=== PATIENT | female | born 1980 | race African-American/Black ===

== ENCOUNTER 2019-06-14 17:15 | Inpatient (IN) ==
[2019-06-14 17:51] LABS: URINE SOURCE CLEAN CATCH
[2019-06-14 17:53] LABS: BILIRUBIN URINE NEGATIVE (NEGATIVE); BLOOD URINE TRACE (NEGATIVE); COLOR YELLOW; GLUCOSE URINE NEGATIVE (NEGATIVE); KETONE URINE NEGATIVE (NEGATIVE); LEUKOCYTES URINE NEGATIVE (NEGATIVE); NITRITE URINE NEGATIVE (NEGATIVE); PROTEIN URINE 50 mg/dL (NEGATIVE); SP GRAVITY URINE 1.032; TURBIDITY URINE CLEAR (CLEAR); UROBILINOGEN URINE 2 mg/dL (NORMAL)
[2019-06-14 17:55] LABS: UR EPITHELIAL CELLS <10 /HPF (<10); URINE BACTERIA NEGATIVE /HPF; URINE RBC <10 /HPF (<10); URINE WBC <10 /HPF (<10)
[2019-06-14 17:57] LABS: BASO# 0.03 X1000 (0.0-0.2); BASO% 0.2 % (0.0-0.8); EOS# 0.04 X1000 (0.0-0.7); EOS% 0.3 % (0.0-10.0); HEMATOCRIT 41.4 % (37.0-47.0); HEMOGLOBIN 13.8 g/dL (12.0-16.0); IMM GRAN# 0.07 X1000 (0.0-0.04); IMM GRAN% 0.5 % (0.0-0.5); LYMPH# 2.21 X1000 (1.2-3.4); MCH 30.4 PG (27-31); MCHC 33.3 g/dL (33-37); MCV 91.2 FL (81-99); MONO# 0.94 X1000 (0.11-0.59); MONO% 6.4 % (1.7-9.3); MPV 9.4 FL (7.4-10.4); NEUT# 11.45 X1000 (1.4-6.5); NEUT% 77.6 % (42.2-75.2); PLT 413 X1000 (130-400); RBC 4.54 XMIL (4.2-5.4); RDW 15.3 % (11.5-14.5); WBC 14.74 X1000 (4.8-10.8)
[2019-06-14 18:06] LABS: AGAP 15; ALBUMIN 4.5 g/dL (3.5-5.0); ALKALINE PHOSPHATASE 100 U/L (32-104); AMYLASE 46 U/L (20-200); BUN 11 mg/dL (8-22); CALCIUM 10.2 mg/dL (8.8-10.2); CHLORIDE 100 mmol/L (98-107); COSMO 272; CREATININE 0.7 mg/dL (0.5-0.9); ESTIMATED GFR > 60; GLUCOSE 105 mg/dL (70-104); GOT 18 U/L (10-30); GPT 17 U/L (10-36); LIPASE 16 U/L (13-60); POTASSIUM 4.7 mmol/L (3.5-5.1); SODIUM 136 mmol/L (136-145); TCO2 21 mmol/L (25-35); TOTAL PROTEIN 9.3 g/dL (6.3-8.3)
--- NOTE | 2019-06-14 19:21 | Diag Imaging Result Doc PS360 ---
EXAM: CT ABD/PELVIS W/IV CONT ONLY - 06/14/2019 HISTORY: abdominal pain, leukocytosis TECHNIQUE: CT abdomen/pelvis with intravenous contrast COMPARISON: None. FINDINGS: The visualized lung bases are clear except for mild dependent atelectasis. There is hepatomegaly with mild fatty infiltration of liver. There is no evidence of focal liver lesion. The spleen is normal size. The spleen appears mildly heterogeneous but this is likely artifactual. There is a 1.2 cm left adrenal nodule which likely represents adrenal adenoma. There is no pancreatic mass or inflammation identified. The gallbladder is mildly distended, but there are no calcified gallstones or pericholecystic inflammation seen. The bilateral kidneys enhance homogeneously except for apparent 1.1 cm left renal cyst. There is no hydronephrosis. There is mild retroperitoneal adenopathy. There is no evidence of bowel obstruction. The appendix is unremarkable. There is colonic diverticulosis which is most extensive at the descending and sigmoid colon. There are inflammatory changes at the distal sigmoid colon with wall thickening and pericolic infiltration, compatible with diverticulitis. There is low-density edema or fluid in the wall of the distal sigmoid for a length of about 8 cm. This may relate to wall edema, possibly with developing intramural abscess. There is no abnormal gas collection or abscess external to the sigmoid. There is a second area of inflammation at the mid ascending colon which is compatible with a secondary diverticulitis. There is substantially less inflammation in this area and at the distal sigmoid. There is no free air identified. IMPRESSION: Diverticulitis at distal descending colon. Wall edema at distal sigmoid with possible developing intramural abscess. No evidence of abscess external to the sigmoid. Second area of diverticulitis at the mid descending colon, with less inflammation at this location than at the distal sigmoid. No free air. No bowel obstruction. Hepatomegaly with mild fatty infiltration of the liver. Probable small left adrenal adenoma. Mild retroperitoneal adenopathy. This may be inflammatory associated with the sigmoid diverticulitis. This exam was performed using automated exposure control, adjustment of mA or kV according to patient size, and/or use of iterative reconstruction technique. Electronically signed by Carl Álvarez 06/14/2019 7:18 PM
[2019-06-14] MEDS ORDERED: PHENERGAN IM ONE (19:37)
[2019-06-14] MEDS ORDERED: NS 1,000 ML IV ONE (19:37)
[2019-06-14] MEDS ORDERED: MORPHINE IV ONE (19:37)
[2019-06-14] MEDS ORDERED: FLAGYL 500 MG/NS 500 MG/100 ML IVPB IV SCH (19:45)
[2019-06-14] MEDS ORDERED: LEVAQUIN 750 MG/D5W 750 MG/150 ML IVPB IV SCH (19:45)
--- NOTE | 2019-06-14 20:06 | PROVIDER DOCUMENTATION ---
This chart was entered by Trista Zuniga Scribe, acting as scribe for Saniya Barroso PA. HPI-Abdominal Pain/GI Problem - General Chief Complaint: Abdominal Pain Stated Complaint: ABD PAIN Time Seen by Provider: 06/14/19 17:36 Source: patient Allergies/Adverse Reactions: Patient Allergies Allergy/AdvReac Type Severity Reaction Status Date / Time Penicillins Allergy RASH Verified 06/14/19 17:49 Home Medications: Home Medication List Medication Instructions Recorded Confirmed Last Taken Type Atorvastatin Calcium 10 mg PO DAILY 03/03/19 06/14/19 Unknown History Amlodipine Besylate [Norvasc] 1 tab PO DAILY 06/14/19 06/14/19 Unknown History - History of Present Illness-ABD Nature of Presenting Problems: 38 yobf c/o lower abd pain and pressure for 3 weeks. Pt has used multiple OTC meds, miralax, laxative and gas x, w/no relief. Pt has had BM's that are pellet shaped and having BM doesn't make abd pain better. Pt was seen at walkin in clinic and sts they told her she had hematuria. denies UTI's, low back pain, renal stone hx and nvd. Abdominal Pain Onset Location: reports: RLQ, LLQ, suprapubic Pain Radiation: reports: no radiation Quality of Pain: reports: pressure Severity in ED: reports: mild Onset/Duration: reports: other (3 weeks) Timing: reports: still present Activities at Onset: reports: none Modifying Factors: improves with: nothing Associated Symptoms: reports: denies symptoms Last BM: other Dark Stools Present?: reports: none noticed Rectal Bleeding: reports: none Rectal Pain: reports: none Emesis Description: reports: none Recently seen or treated by another doctor?: Yes (walk in clinic ) Review of Systems - Adult - REVIEW OF SYSTEMS - ADULT Constitutional: reports: no symptoms reported. denies: chills, fever, fatique Eyes: reports: no symptoms reported Ears, Nose, Mouth & Throat: reports: no symptoms reported Cardiovascular: reports: no symptoms reported Respiratory: reports: no symptoms reported Gastrointestinal: reports: see HPI, abdominal pain, constipation. denies: diarrhea, nausea, vomiting Genitourinary: reports: no symptoms reported Musculoskeletal: reports: no symptoms reported Integumentary: reports: no symptoms reported Neurological: reports: no symptoms reported Psychiatric: reports: no symptoms reported Endocrine: reports: no symptoms reported Hematologic/Lymphatic: reports: no symptoms reported Allergic/Immunologic: reports: no symptoms reported All Other Systems: Reviewed and Negative Past History - Adult - PAST MEDICAL HISTORY-ADULT Review of Records: reports: Nursing Assessment Review, Medications Reviewed, Social history reviewed & non-contributory. Major Childhood Illnesses: reports: denies history Cardiovascular: reports: denies history Respiratory: reports: denies history Gastrointestinal: reports: denies history Obstetrical/Gynecological: reports: denies history Genitourinary: reports: denies history Musculoskeletal: reports: denies history Neurological: reports: denies history Endocrine/Immune: reports: denies history Other Conditions: reports: denies history - PRIOR SURGERIES/PROCEDURES Surgical/Procedure History: reports: BTL, , other (I&D) - IMMUNIZATION STATUS Childhood Immunizations: See Nurse Assessment Flu Vaccine: See Nurse Assessment - FAMILY HISTORY Family History: reviewed, not pertinent - SOCIAL HISTORY Smoking: cigarettes, greater than 1 pack/day Provider spent 3-5 mins advising pt. on dangers of tobacco.: Discussed manners to quit use, and f/u contacts for add'l counseling. Substance Use: alcohol Alcohol Use Frequency: occasionally Physical Exam-General - PHYSICAL EXAM-ADULT Initial Vital Signs Reviewed: Yes - CONSTITUTIONAL General Appearance: appears well, alert, no apparent distress, obese - EYES Eyes: PERRL/EOMI, pink conjunctivae - HEAD, EARS, NOSE, MOUTH & THROAT HENMT: normocephalic/atraumatic, moist mucous membranes - NECK Neck: non-tender, full range of motion, supple. negative: lymphadenopathy - RESPIRATORY Respiratory: chest non-tender, lungs clear, normal breath sounds. negative: crackles, rales, rhonchi, stridor, wheezing - CARDIOVASCULAR Cardiovascular: regular rate, rhythm - GASTROINTESTINAL (ABDOMEN) Abdominal Exam: normal bowel sounds, soft, tenderness (suprapubic). negative: distended, guarding, rigid, rebound, hernia, mass - MUSCULOSKELETAL Back Exam: normal inspection, no CVA tenderness, no vertebral tenderness Extremity: normal gait, normal inspection - SKIN Integumentary: normal color, normal turgor, warm/dry - NEUROLOGIC Neurologic: grossly normal, no motor/sensory deficits - PSYCHIATRIC Psych/Mental Status: normal thought content, normal thought process Progress - PLAN OF CARE/RESULTS Progress/Plan/Lab Results: Vital Signs - 8 hr 06/14/19 17:27 Temperature 97.6 F Pulse Rate 122 H Respiratory Rate 19 Blood Pressure 150/91 O2 Sat by Pulse Oximetry 96 Orders Category Date Time Status NEWS Score 2-4:Order NEWS Lactate Series NOW Care 06/14/19 17:31 Active Saline Loc DIRECTED Care 06/14/19 17:32 Active NPO Diet 06/14/19 17:32 Active AMYLASE [CHEM] Stat Lab 06/14/19 17:42 Ordered CBC WITH ELECTRONIC DIFF [HEME] Stat Lab 06/14/19 17:42 Ordered COMPREHENSIVE METABOLIC PANEL [CHEM] Stat Lab 06/14/19 17:42 Ordered LACTATE, PLASMA [CHEM] Lab 06/14/19 17:42 Ordered LACTATE, PLASMA [CHEM] Lab 06/14/19 20:45 Uncollected LACTATE, PLASMA [CHEM] Lab 06/14/19 23:45 Uncollected LIPASE [CHEM] Stat Lab 06/14/19 17:42 Ordered TEST-URINE [PREG] Stat Lab 06/14/19 17:42 Ordered URINALYSIS W/POSS RFLX CULT [URINALYSIS] Stat Lab 06/14/19 17:42 Ordered Result Diagrams: 06/14/19 17:42 06/14/19 17:42 - CT/MRI 1 CT Study: Abdomen, Pelvis Impression: Abnormal, See EMR Report ( EXAM: CT ABD/PELVIS W/IV CONT ONLY - 06/14/2019 HISTORY: abdominal pain, leukocytosis TECHNIQUE: CT abdomen/pelvis with intravenous contrast COMPARISON: None. FINDINGS: The visualized lung bases are clear except for mild dependent atelectasis. There is hepatomegaly with mild fatty infiltration of liver. There is no evidence of focal liver l esion. The spleen is normal size. The spleen appears mildly heterogeneous but this is likely artifactual. There is a 1.2 cm left adrenal nodule which likely represents adrenal adenoma. There is no pancreatic mass or inflammation identified. The gallbladder is mildly distended, but there are no calcified gallstones or pericholecystic inflammation seen. The bilateral kidneys enhance homogeneously except for apparent 1.1 cm left renal cyst. There is no hydronephrosis. There is mild retroperitoneal adenopathy. There is no evidence of bowel obstruction. The appendix is unremarkable. There is colonic diverticulosis which is most extensive at the descending and sigmoid colon. There are inflammatory changes at the distal sigmoid colon with wall thickening and pericolic infiltration, compatible with diverticulitis. There is low-density edema or fluid in the wall of the distal sigmoid for a length of about 8 cm. This may relate to wall edema, possibly with developing intramural abscess. Th ere is no abnormal gas collection or abscess external to the sigmoid. There is a second area of inflammation at the mid ascending colon which is compatible with a secondary diverticulitis. There is substantially less inflammation in this area and at the distal sigmoid. There is no free air identified. IMPRESSION: Diverticulitis at distal descending colon. Wall edema at distal sigmoid with possible developing intramural abscess. No evidence of abscess external to the sigmoid. Second area of diverticulitis at the mid descending colon, with less inflammation at this location than at the distal sigmoid. No free air. No bowel obstruction. Hepatomegaly with mild fatty infiltration of the liver. Probable small left adrenal adenoma. Mild retroperitoneal adenopathy. This may be inflammatory associated with the sigmoid diverticulitis. This exam was performed using automated exposure control, adjustment of mA or kV according to patient size, and/or use of iterative reconstruction technique. Electronically signed by Carl Álvarez 06/14/2019 7:18 PM) Comparison with other Films: no prior study - CONSULTS/PCP/HOSPITALIST Notification #1 *Consult/PCP/Hospitalist*: Dr. Antunez Time Discussed: 19:34 Consult Disposition: Admit #2 Consult: Dr. Peña Time Discussed: 19:39 Consult Disposition: Will see in ED (Dr. Peña at bedside to exam in pt at 20:00), other (Dr. Peña requests pt be transferred to [facility] Departure - Departure Date of Disposition Decision: 06/14/19 Time of Disposition Decision: 19:43 DIAGNOSIS: Diverticulitis Diverticulitis of large intestine with abscess Qualifiers: Diverticulitis bleeding: without bleeding Qualified Code(s): K57.20 - Diverticulitis of large intestine with perforation and abscess without bleeding Disposition: ADMITTED INPATIENT 09 Certified Medical Emergency: Emergent Condition: Good Referrals and Follow-Ups: None,PCP [Primary Care Provider] - - Critical Care Note This patient required my direct & personal management of CC.: No Attestation - Physician/ ERICA Attestation Patient care was provided by Advanced Practice Provider:: Yes Advanced Practice Provider:: Saniya Barroso Advanced Practice Provider documentation review:: The Mid-level provider documentation, treatment plan and medical decision making was reviewed by the physician who agrees with all treatment and medical decision making by the MLP. The physician spent face to face time with patient:: Yes (Dr. Cano at bedside to discuss need for admission and possible surgical intervention) Advanced Practice Provider documentation review:: Supervising physician onsite and consulted in the evaluation and care of this patient. The physician did have a face to face encounter with the patient. This chart was documented by the indicated scribe, (Trista Zuniga Scribe) and accurately reflects the services I performed and decisions made by me, Saniya Devlin PA, as attested by the provider's signature.
--- NOTE | 2019-06-14 20:20 | GENERAL SURGERY CONSULTATION ---
DATE: 06/14/2019 REASON FOR CONSULTATION: Diverticulitis. CHIEF COMPLAINT: Abdominal pain. HISTORY OF PRESENT ILLNESS: This is a 38-year-old female who developed lower abdominal pain, she says starting 3 weeks ago. It became more severe, prompting her presentation to the emergency department. She has had some hard stools lately. No bleeding. Weight has been stable. No nausea or vomiting. She came to the ER where CT scan showed sigmoid diverticulitis with another separate focal area of the descending colon and some question of possible developing intramural abscess. No free air. MEDICAL HISTORY: Hypertension and hyperlipidemia. SURGICAL HISTORY: . SOCIAL HISTORY: She does smoke a pack a day. Drinks alcohol. 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 FAMILY HISTORY: Significant for lung cancer. REVIEW OF SYSTEMS: A 10-point review of systems is negative other than what is mentioned in her HPI. PHYSICAL EXAMINATION: General: She has low grade tachycardia, sinus. No fevers. Blood pressure has been okay. She appears uncomfortable, but in no acute distress. HEENT: No scleral icterus. No cervical mass. Cardiovascular: Sinus tachycardia. Pulmonary: No increased work of breathing. Abdomen: Obese. It is soft, nondistended. It is tender in the lower quadrants, but no aye peritonitis. Integument: Warm and dry. Psychiatric: Appropriate affect. Neurologic: No gross deficits. Lymphatic: No cervical, axillary, or inguinal adenopathy. Peripheral vascular: No lower extremity edema. LABS: White count is mildly elevated at 14, hematocrit 41, platelets 413,000. Creatinine 0.7. LFTs normal. Lipase normal. Lactate is normal. Urinalysis is negative for nitrites and leukocytes. I reviewed her CT scan. test negative. ASSESSMENT AND PLAN: A 38-year-old female with diverticulitis in sigmoid colon. Transferred to [facility]. We will start her on intravenous antibiotics. I would recommend Zosyn. We will keep her with bowel rest and follow her clinically. We did discuss possibility of needing a sigmoid colectomy, possible end colostomy if she were to deteriorate, but I suspect that this will get better. She will need outpatient followup colonoscopy after this has resolved in 6 weeks. We will follow along. She has been admitted to the hospital. cc: Yun Peña MD
[2019-06-14] MEDS ORDERED: MORPHINE IV PRN ×2 (22:04→22:51)
[2019-06-14] MEDS ORDERED: PHENERGAN IV PRN (22:05)
[2019-06-14] MEDS ORDERED: SODIUM CHLORIDE 0.9% INJ PRN (22:05)
[2019-06-15] MEDS: INVANZ 1 GM/NS 1 GM/50 ML IVPB IV SCH (00:07)
[2019-06-15] MEDS: NS 1,000 ML IV SCH ×3 (00:08→15:38)
[2019-06-15 06:33] LABS: BASO# 0.01 X1000 (0.0-0.2); BASO% 0.1 % (0.0-0.8); EOS# 0.04 X1000 (0.0-0.7); EOS% 0.4 % (0.0-10.0); HEMATOCRIT 37.8 % (37.0-47.0); HEMOGLOBIN 12.5 g/dL (12.0-16.0); IMM GRAN# 0.03 X1000 (0.0-0.04); IMM GRAN% 0.3 % (0.0-0.5); LYMPH# 1.86 X1000 (1.2-3.4); LYMPH% 17.5 % (20.5-51.1); MCH 29.9 PG (27-31); MCHC 33.1 g/dL (33-37); MCV 90.4 FL (81-99); MONO# 0.84 X1000 (0.11-0.59); MONO% 7.9 % (1.7-9.3); NEUT# 7.83 X1000 (1.4-6.5); NEUT% 73.8 % (42.2-75.2); PLT 318 X1000 (130-400); RBC 4.18 XMIL (4.2-5.4); RDW 15.2 % (11.5-14.5); WBC 10.61 X1000 (4.8-10.8)
[2019-06-15 06:57] LABS: AGAP 14; BUN 9 mg/dL (8-22); CALCIUM 9.3 mg/dL (8.8-10.2); CHLORIDE 100 mmol/L (98-107); COSMO 269; CREATININE 0.6 mg/dL (0.5-0.9); ESTIMATED GFR > 60; GLUCOSE 102 mg/dL (70-104); POTASSIUM 3.8 mmol/L (3.5-5.1); SODIUM 135 mmol/L (136-145); TCO2 21 mmol/L (25-35)
[2019-06-15] MEDS: LIPITOR PO SCH (08:08)
[2019-06-15] MEDS: NORVASC PO SCH (08:09)
[2019-06-15] MEDS ORDERED: SODIUM CHLORIDE 0.9% INJ SCH (11:00)
[2019-06-15] MEDS: PROTONIX IV SCH (12:14)
--- NOTE | 2019-06-15 13:09 | SEPSIS: TISSUE PERFUSION ASSMT ---
Sepsis: Tissue Perfusion Assmt - Physical Exam Assessment Date: 06/15/19 Time Assessment Initialized: 12:00 Vital Signs: Last Vital Signs Temp 98.0 F 06/15/19 12:00 Pulse 83 06/15/19 12:00 Resp 16 06/15/19 12:00 BP 119/76 06/15/19 12:00 Pulse Ox 98 06/15/19 12:00 Height 5 ft 4 in Weight 113.965 kg Lung Sounds: lungs clear Heart Sounds: Regular Capillary Refill Time: Less Than 2 Seconds Peripheral Pulse Evaluation: radial (R): 2+, radial (L): 2+, dorsalis-pedis (R): 2+, dorsalis-pedis (L): 2+, posterior tibialis (R): 2+, posterior tibialis (L): 2+ Skin Exam: pink - Alternative Fluid Bolus Bolus Option: Alternative Fluid Resuscitation Bolus for morbidly obese patients with a BMI >30, Refer to Paper [facility] Body Weight Chart for Reference. Is patient's BMI >30?: Yes - Impression Impression: Tissue Perfusion Adequate (Patient would be continued on continuous IV fluid resuscitation.)
--- NOTE | 2019-06-15 13:50 | GENERAL SURGERY PROGRESS NOTE ---
DATE: 06/15/2019 SUBJECTIVE: Feels better. Pain is improved. No fevers, her tachycardia improved. OBJECTIVE: Vital signs: Heart rate is now 90, blood pressure 108/53, oxygen 93% on room air. General: She is alert. Cardiovascular: Normal rate. Pulmonary: No increased work of breathing. Abdomen: Soft. Mild tenderness in lower quadrants but no peritonitis. Integument: Warm and dry. DIAGNOSTIC DATA: White count 10, hematocrit 37. Creatinine 0.6. ASSESSMENT AND PLAN: A 38-year-old female with sigmoid diverticulitis that is improving with antibiotics. We will continue bowel rest and IV antibiotics. cc: Yun Peña MD
--- NOTE | 2019-06-15 13:51 | PROGRESS NOTE ---
DATE: 06/15/2019 INTERVAL HISTORY: Ms. Avila was transferred from what looks like [facility] for abdominal pain and acute diverticulitis. She was started on intravenous antibiotics and intravenous fluids as per surgical team's recommendation. Overnight, no acute events. SUBJECTIVE: Ms. Avila is feeling better. She denies any nausea, vomiting. Her abdominal pain has improved. REVIEW OF SYSTEMS: Negative for fevers, chills. Negative for chest pain, shortness of breath. Negative for cough. Negative for passing flatus either. VITALS: Temperature 98 degrees, pulse 83, respiratory 16, blood pressure 119/76, saturating 98% room air. PHYSICAL EXAMINATION: Ms. Avila is not in acute distress.HEENT: Oral cavity is moist. Lungs: Air entry bilaterally. No wheeze, rhonchi or crackles. Heart: S1 and S2 normal. No murmur or gallop. Abdomen: Soft. There is mild tenderness in suprapubic and bilateral lower quadrant without any guarding, rigidity, or rebound. Hypoactive bowel sounds. Extremity: No lower extremity edema. Neurologic: She is alert and oriented x3. LABS: Suggestive of WBC 58425, hemoglobin 12.5, platelet 318,000. Her electrolytes are unremarkable except sodium of 135, BUN of 9, creatinine 0.6. Blood cultures are in lab. ASSESSMENT AND PLAN: 1. Sepsis due to acute sigmoid diverticulitis. She denies known history of atrial fibrillation. Surgical Team on board currently recommends nonsurgical management since her abdominal examination is rather benign. There are no signs or symptoms of peritonitis or rupture of the intestine. Continue intravenous fluids, intravenous ertapenem. Follow up with final blood culture results. I will add intravenous pantoprazole for stress ulcer prophylaxis. 2. History of essential hypertension and hyperlipidemia. I will resume her home amlodipine and atorvastatin. 3. Tobacco abuse. She was counseled about smoking cessation. 4. Others. Continue intravenous morphine for pain management and enoxaparin for DVT prophylaxis. DISPOSITION: Continue to monitor patient inside the hospital. Plan of care discussed with Ms. Avila. I would appreciate Surgery recommendation about starting her on diet in future. I advised the patient to be active and come out of bed and sit in chair as tolerated. She understood it. She was also counseled about smoking cessation. 35 minutes were spent in taking care of this patient. cc: Bib Chan MD
[2019-06-15] MEDS: LOVENOX SUBQ SCH (15:37)
[2019-06-16] MEDS: INVANZ 1 GM/NS 1 GM/50 ML IVPB IV SCH
[2019-06-16 07:00] LABS: BASO# 0.01 X1000 (0.0-0.2); BASO% 0.1 % (0.0-0.8); EOS# 0.07 X1000 (0.0-0.7); EOS% 0.9 % (0.0-10.0); HEMATOCRIT 36.3 % (37.0-47.0); HEMOGLOBIN 11.7 g/dL (12.0-16.0); IMM GRAN# 0.02 X1000 (0.0-0.04); IMM GRAN% 0.3 % (0.0-0.5); LYMPH# 2.13 X1000 (1.2-3.4); LYMPH% 27.6 % (20.5-51.1); MCH 29.7 PG (27-31); MCHC 32.2 g/dL (33-37); MCV 92.1 FL (81-99); MONO# 0.52 X1000 (0.11-0.59); MONO% 6.7 % (1.7-9.3); MPV 9.3 FL (7.4-10.4); NEUT# 4.96 X1000 (1.4-6.5); NEUT% 64.4 % (42.2-75.2); PLT 297 X1000 (130-400); RBC 3.94 XMIL (4.2-5.4); WBC 7.71 X1000 (4.8-10.8)
[2019-06-16 07:32] LABS: AGAP 13; BUN 10 mg/dL (8-22); CALCIUM 8.9 mg/dL (8.8-10.2); CHLORIDE 104 mmol/L (98-107); COSMO 267; CREATININE 0.6 mg/dL (0.5-0.9); ESTIMATED GFR > 60; GLUCOSE 68 mg/dL (70-104); POTASSIUM 3.8 mmol/L (3.5-5.1); SODIUM 135 mmol/L (136-145); TCO2 18 mmol/L (25-35)
[2019-06-16] MEDS: NORVASC PO SCH (08:13)
[2019-06-16] MEDS: LIPITOR PO SCH (08:13)
[2019-06-16] MEDS: NS 1,000 ML IV SCH ×4 (08:13→21:07)
--- NOTE | 2019-06-16 10:49 | GENERAL SURGERY PROGRESS NOTE ---
DATE: 06/16/2019 SUBJECTIVE: Feels better. Only mild dysuria when she voids. No fevers. OBJECTIVE: Vital Signs: Pulse in the 90s. Blood pressure 119/66. General: She is alert. Cardiovascular: Normal rate. Abdomen: Soft. Much less tender, now only subjectively in the lower quadrants. No peritonitis. LABORATORY DATA: White count 7, hematocrit 36 creatinine 0.6. ASSESSMENT AND PLAN: This is a 38-year-old female. Diverticulitis is clinically improving. We will give her clear liquids today. Depending on what her labs look like and her exam, we may switch her to oral antibiotics tomorrow. cc: Yun Peña MD
[2019-06-16] MEDS: PROTONIX IV SCH (12:39)
--- NOTE | 2019-06-16 13:34 | PROGRESS NOTE ---
DATE: 06/16/2019 INTERVAL HISTORY: No acute events overnight. Surgical team has started her on a clear liquid diet. SUBJECTIVE: Ms. Avila denies any more nausea, vomiting, abdominal pain. She had a small bowel movement this morning. VITALS: Temperature 98.7 degrees, pulse 86, respiratory rate 18, blood pressure 119/60, saturating 97% on room air. PHYSICAL EXAMINATION: Morbidly obese. Not in acute distress. Oral cavity is moist. Lungs: Air entry bilaterally equal. No wheeze, rhonchi, or crackles. S1, S2 normal. No murmur, rub, or gallop. Abdomen: Soft, nontender. No lower extremity edema. She is alert and oriented x3. LABS: WBC 7.7, hemoglobin 11.7, platelets 297,000. Sodium 135, BUN 10, creatinine 0.6, her glucose is 68. MICROBIOLOGY: No positive blood culture data. IMAGING: No new imaging. ASSESSMENT AND PLAN: 1. Sepsis due to acute sigmoid diverticulitis, improved. Continue intravenous fluids. She has been started on a clear liquid diet, which I will continue. I will keep her on intravenous ertapenem, intravenous pantoprazole, and intravenous morphine as needed for pain. I advised her about following up with a GI physician outpatient for colonoscopy in 4 weeks. 2. History of essential hypertension, hyperlipidemia. Continue home amlodipine and atorvastatin. 3. Tobacco abuse. She was counseled about smoking cessation. 4. Others. Continue enoxaparin for deep venous thrombosis prophylaxis. 5. Disposition. I will advance her diet to full liquids tomorrow. If she tolerates, I would anticipate discharge in the next 24 hours. She would need outpatient colonoscopy and a referral would be provided to her at the time of discharge. cc: MD MARTÍN Escalante
[2019-06-16] MEDS: LOVENOX SUBQ SCH (19:23)
[2019-06-17] MEDS: INVANZ 1 GM/NS 1 GM/50 ML IVPB IV SCH (00:43)
[2019-06-17] MEDS: NS 1,000 ML IV SCH (00:44)
--- NOTE | 2019-06-17 07:01 | GENERAL SURGERY PROGRESS NOTE ---
DATE: 06/17/2019 SUBJECTIVE: Doing well. She is tolerating clear liquids. No fevers. No tachycardia. Her abdomen is soft, nontender, nondistended. White count 7, hematocrit is 36, creatinine 0.6. ASSESSMENT AND PLAN: Resolving diverticulitis. From a surgical perspective, she can go home and gradually advance her diet to soft. She will need 2 weeks of antibiotics; I would do Bryce Gonzales, and she can see me in a week. cc: Yun Peña MD
[2019-06-17 07:42] LABS: BASO# 0.01 X1000 (0.0-0.2); BASO% 0.2 % (0.0-0.8); EOS% 1.8 % (0.0-10.0); HEMATOCRIT 37.3 % (37.0-47.0); HEMOGLOBIN 12.2 g/dL (12.0-16.0); LYMPH% 30.6 % (20.5-51.1); MCH 29.5 PG (27-31); MCHC 32.7 g/dL (33-37); MCV 90.3 FL (81-99); MONO# 0.44 X1000 (0.11-0.59); MONO% 7.9 % (1.7-9.3); MPV 9.3 FL (7.4-10.4); NEUT% 59.5 % (42.2-75.2); PLT 333 X1000 (130-400); RBC 4.13 XMIL (4.2-5.4); RDW 14.6 % (11.5-14.5); WBC 5.55 X1000 (4.8-10.8)
[2019-06-17 07:54] VITALS: BP 127/71
[2019-06-17 08:13] LABS: AGAP 13; BUN 6 mg/dL (8-22); CALCIUM 9.3 mg/dL (8.8-10.2); CHLORIDE 105 mmol/L (98-107); COSMO 273; CREATININE 0.6 mg/dL (0.5-0.9); ESTIMATED GFR > 60; GLUCOSE 95 mg/dL (70-104); POTASSIUM 3.8 mmol/L (3.5-5.1); SODIUM 138 mmol/L (136-145); TCO2 20 mmol/L (25-35)
--- NOTE | 2019-06-17 08:48 | HISTORY AND PHYSICAL ---
CHIEF COMPLAINT: Abdominal pain. HISTORY OF PRESENT ILLNESS: This is a 38-year-old female who developed lower abdominal pain. She said she started having it around 3 weeks ago. It became more severe causing her to come to the emergency room. She stated she had some constipation lately, no diarrhea, no nausea or vomiting. On arrival to the emergency room CT showed diverticulitis of the descending colon, wall edema at the distal sigmoid with possible developing intermuscular abscess, a second area of diverticulitis at the mid descending colon with less inflammation at the location than the distal sigmoid. She was evaluated by DR. Saldana at [facility] emergency room, and he recommended transfer to [facility] for admission. She will be placed on the medical floor for further evaluation and treatment. PAST MEDICAL HISTORY: Hypertension, hyperlipidemia. PREVIOUS SURGICAL HISTORY: section. SOCIAL HISTORY: A [id number] smoker and occasional alcohol. She works as a nursing unit clerk. No illicit drugs. FAMILY HISTORY: Positive for lung cancer. ALLERGIES: Penicillin. HOME MEDICATIONS: Norvasc 5 mg p.o. daily, atorvastatin 10 mg p.o. daily. REVIEW OF SYSTEMS: A 14-point review of systems was conducted with the patient. Pertinent positives as listed above in the HPI. All other systems reviewed and found to be negative. PHYSICAL EXAMINATION: VITAL SIGNS: Temperature 98.2, pulse 107, blood pressure 120/75, oxygen saturation 99% on room air. GENERAL: A pleasant 38-year-old female lying in the medical floor bed. She is alert and oriented times 3 and in no acute distress. HEENT: Head is atraumatic, normocephalic. Pupils equal, round and react to light. Extraocular eye movement is intact. Sclera is anicteric. Conjunctiva is pink. Oral mucosa is moist. NECK: Supple. No JVD. No thyromegaly. Trachea is midline. No cervical lymphadenopathy. CARDIAC: S1, S2 appreciated. She is mildly tachycardic. No murmurs, gallops or rubs. LUNGS: Clear to auscultation bilaterally. No rhonchi, wheezes or rales. Symmetric rise and fall with respirations. ABDOMEN: Protuberant, soft and nondistended. Tender in the lower quadrant. No rebound tenderness. Bowel sounds present in all 4 quadrants and normoactive. No pulsatile mass. No organomegaly. EXTREMITIES: No clubbing, cyanosis or edema. Two plus pedal pulses bilaterally. GENITOURINARY: No bladder distention. The patient voids, otherwise defers. NEUROLOGICAL: Alert and oriented times 3. No focal motor deficits. Otherwise, normal focal examination. DIAGNOSTIC DATA: For CT report, please see HPI. LABORATORY DATA: WBC 14.47, hemoglobin 13.8, hematocrit 41.4, platelet count 413,000, sodium 136, potassium 4.7, chloride 100, carbon dioxide 21, BUN 11, creatinine 0.7, glucose 105. Urine unremarkable. ASSESSMENT: 1. Diverticulitis. 2. Hypertension. 3. Hyperlipidemia. 4. Abdominal pain secondary to #1. PLAN: Admit the patient to [facility]. Dr. Saldana has been consulted and has seen the patient. He had recommended Zosyn, but she has penicillin allergy, so we will start Invanz 1 gram IV q 24 hours, morphine 2 mg every 3 hours p.r.n. for pain, Phenergan as needed for nausea, normal saline. Will hold the patient n.p.o. Recheck laboratory data. Further recommendations per the patient's clinical course. Dictated by DEMARIO Luque for Fazal Girard MD Addendum: Patient seen and examined by myself. Agree with DEMARIO note. It reflects my assessment and plan. Patient is being admitted to hospital for diverticulitis so will place her on antibiotics and pain medications and will monitor patient closely. cc: DEMARIO Luque MD [facility]
[2019-06-17] MEDS: LIPITOR PO SCH (10:05)
[2019-06-17] MEDS: NORVASC PO SCH (10:05)
--- NOTE | 2019-06-19 07:03 | DISCHARGE SUMMARY ---
ADMISSION DATE: 06/14/2019 DISCHARGE DATE: 06/17/2019 DISCHARGE DISPOSITION: The patient left against medical advice. DISCHARGE CONDITION: I could not evaluate the patient at the time of discharge. DISCHARGE DIAGNOSES: 1. Sepsis due to acute sigmoid diverticulitis. 2. History of essential hypertension. 3. Hyperlipidemia. 4. Tobacco abuse. DISCHARGE MEDICATIONS: I could not reconcile the medications since the patient left against medical advice. HOSPITAL COURSE SUMMARY: Ms. Avila is a 38-year-old, -[place] lady who had presented on 06/14/2019 with chief complaints of abdominal pain located in the lower quadrants. On arrival to the emergency room, she was found to have a temperature of 97.6 degrees, pulse of 122, respiratory rate of rate of 19, blood pressure of 150/90, oxygen saturation of 96% on room air. Her initial lab had leukocytosis of 14,000. BUN of 11, creatinine 0.5, and lactic acidosis of 0.6. CT scan of abdomen and pelvis had detected diverticulitis in the distal descending colon, wall edema at distal sigmoid with possible developing intramural abscess without any evidence of abscess external to the sigmoid and a second area of diverticulitis at the mid descending colon with less inflammation without any free air or bowel obstruction. The patient was given bowel rest. Surgery was consulted and the patient was managed nonoperatively with intravenous fluids and intravenous antibiotics. Later on, the patient was started on a clear liquid diet and it was advanced, which patient was tolerating well. She had reported bowel movements without any blood. Her leukocytosis and tachycardia had resolved. Initial plan was to discharge the patient on 06/17/2019 and surgical team had evaluated the patient on 06/17/2019. However, before I could evaluate the patient, the patient had decided to go against medical advice. Twenty-five minutes were spent in discharging this patient. cc: Bib Chan MD
== END 2019-06-17 10:25 | disposition left against medical advice (07) | DRG 872 ==
LOC: P.ED 17:15 → 3N 20:17 → SUATTDRO 20:17
PROVIDERS: ATTEND Internal Medicine